=== PATIENT | male | born 1935 | race Caucasian/White ===

== ENCOUNTER 2020-09-26 06:31 | Outpatient (CLI) | payer MEDICARE ==
[2020-09-26 12:43] LABS: #Eosinphils 0.1 10x3/uL (0.0-0.5); #Monocytes 0.5 10x3/uL (0.0-1.1); #Neutrophils 3.4 10x3/uL (1.5-8.4); %Basophils 0.4 % (0.0-2.0); %Monocytes 8.4 % (0.0-10.0); Hemoglobin 13.7 g/dL (14.0-18.0); Mean Corpuscular HGB CONC 32.6 G/DL (32.0-36.0); Mean Corpuscular Hemoglobin 29.8 PG (27.0-33.0); Mean Corpuscular Volume 91.5 fl (80.0-100.0); Mean Platelet Volume 12.3 fl (7.4-10.4); Platelet Count 135 10x3/uL (130-400); RBC Distribution Width 13.6 % (11.5-14.5); Red Blood Cell (RBC) Count 4.59 10x6/uL (4.40-5.80); White Blood Cell (WBC) Count 5.5 10x3/uL (4.5-11.0)
[2020-09-26 13:07] LABS: Anion Gap 19 mmol/L (10-20); BUN (Urea Nitrogen) 25 mg/dL (8.4-25.7); Calc. Creatinine Clearance 0 mL/min (70-130); Calcium 8.8 mg/dL (7.8-10.44); Carbon Dioxide 22 mmol/L (23-31); Chloride 104 mmol/L (98-107); Estimated GFR-MDRD 62; Glucose 91 mg/dL (83-110); Potassium 4.2 mmol/L (3.5-5.1); Sodium 141 mmol/L (136-145)
[2020-09-27 15:01] LABS: SARS-CoV-2 MS2 Positive; SARS-CoV-2 N Gene Negative; SARS-CoV-2 S Gene Negative; SARS-CoV-2 by NAA Not Detected (NotDetected); SARS-CoV-2 orf1ab Negative
--- NOTE | 2020-09-29 20:53 | EKG ---
Test Reason : Blood Pressure : / mmHG Vent. Rate : 062 BPM Atrial Rate : 062 BPM P-R Int : 212 ms QRS Dur : 166 ms QT Int : 516 ms P-R-T Axes : 096 -71 095 degrees QTc Int : 523 ms AV dual-paced rhythm with prolonged AV conduction with occasional ventricular-paced complexes Abnormal ECG No previous ECGs available Confirmed by Petr SWANSON ([id number]) on 09/29/2020 8:52:55 PM Referred By: KRISTEN Confirmed By:Petr SWANSON
== END 2020-09-26 06:32 | disposition home or self-care (01) ==
LOC: LABBT 06:31
PROVIDERS: ATTEND Orthopaedic Surgery Hand Surgery
DX: Z01.812 Encounter for preprocedural laboratory examination (principal); Z20.828 Contact with and (suspected) exposure to other viral communicable diseases; G56.01 Carpal tunnel syndrome, right upper limb
CPT/HCPCS: 80048; 85025; 93005; U0003; 87635; 93010

== ENCOUNTER 2020-10-01 05:32 | Day surgery (SDC) | payer MEDICARE ==
[2020-09-30 12:52] VITALS: BMI 28.6
[2020-10-01] MEDS ORDERED: Betamet Acet/Betamet Na Ph 30 MG/5 ML VIAL ONE (06:21)
[2020-10-01] MEDS ORDERED: Bupivacaine PF 0.5% 30 ML VIAL ONE (06:21)
[2020-10-01] MEDS ORDERED: Bacitracin Zinc Ointment 30 gm TUBE ONE (06:21)
[2020-10-01] MEDS ORDERED: Fentanyl 100 MCG/2 ML VIAL ONE (06:53)
[2020-10-01] MEDS ORDERED: Propofol 500 MG/50 ML VIAL ONE (06:57)
[2020-10-01] MEDS ORDERED: Lidocaine 1% (PF) 30 ML VIAL ONE (07:09)
[2020-10-01] MEDS ORDERED: ePHEDrine 50 MG/ML VIAL ONE (10:32)
--- NOTE | 2020-10-01 11:01 | OP ---
DATE OF PROCEDURE: 10/01/2020 PREOPERATIVE DIAGNOSIS: Right carpal tunnel syndrome. POSTOPERATIVE DIAGNOSIS: Right carpal tunnel syndrome. FINDINGS: Very tight transverse carpal ligament with flattening and stippling over a 15 mm area of the median nerve within the carpal canal. PROCEDURE PERFORMED: Right carpal tunnel release. BLOOD LOSS: 5 mL or less. TOURNIQUET TIME: 16 minutes. No tenosynovitis. ANESTHESIA: IV conscious sedation augmented with 15 mL of Marcaine prior to incision and 15 more given, a total of 30, with the last 15 given after the incision was closed. DESCRIPTION OF PROCEDURE: After successful anesthesia, the limb prepped and draped. We then outlined incision, which was 2.5 cm long, beginning at the wrist volar flexion crease, going distally. We gave the subcutaneous injection of 15 mL of Marcaine and then waited for 5 minutes, exsanguinated the limb and inflated tourniquet to 250 mmHg pressure. We then entered the incision, carried it through skin and subcutaneous tissue and found a very thick transverse carpal ligament at distal half and thin but tight in the proximal one-half. At the junction of these two halves was where we saw the most compression. We did the release under direct visualization with a [place] blade, obtained hemostasis after releasing the tourniquet, and closed the wound with interrupted 4-0 nylon. He left the operating room without complication. Job ID: [id number]
== END 2020-10-01 09:00 | disposition home or self-care (01) ==
LOC: SDC 05:32
PROVIDERS: ATTEND Orthopaedic Surgery Hand Surgery
PROC: 01N50ZZ Release Median Nerve, Open Approach (ICD-10-PCS; principal; 2020-10-01)
DX: G56.01 Carpal tunnel syndrome, right upper limb (principal); I11.0 Hypertensive heart disease with heart failure; I50.9 Heart failure, unspecified; E78.5 Hyperlipidemia, unspecified; I87.2 Venous insufficiency (chronic) (peripheral); I35.1 Nonrheumatic aortic (valve) insufficiency; Z87.891 Personal history of nicotine dependence; Z79.899 Other long term (current) drug therapy; Z95.0 Presence of cardiac pacemaker; Z98.1 Arthrodesis status
CPT/HCPCS: J0690; J0702; J2001; J2704; J3010; J3490; S0020

== ENCOUNTER 2021-12-17 11:29 | Outpatient (CLI) | payer MEDICARE | END 2021-12-17 11:30 | disposition home or self-care (01) | LOC: BICRAD 11:29 | PROVIDERS: ATTEND Internal Medicine Cardiovascular Disease | DX: I50.22 Chronic systolic (congestive) heart failure (principal); I51.7 Cardiomegaly; R09.89 Other specified symptoms and signs involving the circulatory and respiratory systems | CPT/HCPCS: 71046 ==

== ENCOUNTER 2022-06-18 11:59 | Outpatient (CLI) | payer MEDICARE ==
[2022-06-18 13:21] LABS: Hemoglobin 13.7 g/dL (13.5-17.5); Mean Corpuscular HGB CONC 32.5 g/dL (32.0-36.0); Mean Corpuscular Hemoglobin 30.5 pg (27.0-33.0); Mean Corpuscular Volume 93.8 fl (81.2-95.1); Mean Platelet Volume 12.9 fl (7.4-10.4); Platelet Count 126 10x3/uL (150-450); RBC Distribution Width 14.7 % (11.5-14.5); Red Blood Cell (RBC) Count 4.49 10x6/uL (4.32-5.72); White Blood Cell (WBC) Count 4.5 10x3/uL (3.5-10.5)
[2022-06-18 13:38] LABS: Anion Gap 16 mmol/L (10-20); BUN (Urea Nitrogen) 25 mg/dL (8.4-25.7); Calc. Creatinine Clearance 0 mL/min (70-130); Carbon Dioxide 24 mmol/L (23-31); Chloride 107 mmol/L (98-107); Estimated GFR 48; Glucose 120 mg/dL (83-110); Potassium 4.4 mmol/L (3.5-5.1); Sodium 143 mmol/L (136-145)
[2022-06-18 13:47] LABS: PTT 29.6 sec (22.0-33.0); Prothrombin Time 11.3 sec (9.5-12.1)
== END 2022-06-18 12:00 | disposition home or self-care (01) ==
LOC: LABBT 11:59
PROVIDERS: ATTEND Internal Medicine Cardiovascular Disease
DX: Z01.812 Encounter for preprocedural laboratory examination (principal); Z20.822 Contact with and (suspected) exposure to COVID-19
CPT/HCPCS: 80048; 85027; 85610; 85730; 87811

== ENCOUNTER 2022-06-23 06:15 | Day surgery (SDC) | payer MEDICARE ==
[2022-06-22 08:59] VITALS: BMI 27.6
[2022-06-23] MEDS ORDERED: Ketamine 50 MG/ML (10ML VIAL) ONE (07:17)
[2022-06-23] MEDS ORDERED: Lidocaine 1% PF 5 ML VIAL ONE (07:26)
[2022-06-23] MEDS ORDERED: PROPOFOL 200 MG/20 ML VIAL ONE (07:26)
== END 2022-06-23 08:45 | disposition home or self-care (01) ==
LOC: SDC 06:15
PROVIDERS: ATTEND Internal Medicine Cardiovascular Disease
PROC: 5A2204Z Restoration of Cardiac Rhythm, Single (ICD-10-PCS; principal; 2022-06-23)
DX: I48.4 Atypical atrial flutter (principal); I48.0 Paroxysmal atrial fibrillation; I44.2 Atrioventricular block, complete; I11.0 Hypertensive heart disease with heart failure; I50.22 Chronic systolic (congestive) heart failure; Z87.891 Personal history of nicotine dependence; Z79.01 Long term (current) use of anticoagulants; Z79.899 Other long term (current) drug therapy; Z95.810 Presence of automatic (implantable) cardiac defibrillator
CPT/HCPCS: 92960; 93005; 93010; J2704

== ENCOUNTER 2022-12-03 10:55 | Inpatient (IN) | payer MEDICARE ==
[2022-12-03] MEDS ORDERED: Furosemide 40 MG/4 ML VIAL ONE (12:05)
[2022-12-03 12:32] LABS: #Lymphocytes 0.7 thou/uL (1.20-3.40); #Monocytes 0.3 thou/uL (0.11-0.59); #Neutrophils 3.8 thou/uL (1.40-6.50); %Basophils 0.4 % (0.0-1.0); %Eosinophils 0.5 % (0.0-10.0); %Lymphocytes 14.8 % (21.0-51.0); %Monocytes 6.6 % (0.0-10.0); %Neutrophils 77.7 % (42.0-75.0); Hemoglobin 14.7 g/dL (14.0-18.0); Mean Corpuscular HGB CONC 32.7 g/dL (32.0-36.0); Mean Corpuscular Hemoglobin 31.5 pg (27.0-31.0); Mean Corpuscular Volume 96.4 fl (78.0-98.0); Mean Platelet Volume 9.9 fL (7.4-10.4); Platelet Count 138 10x3/uL (130-400); RBC Distribution Width 14.9 % (11.5-14.5); Red Blood Cell (RBC) Count 4.67 mill/uL (4.70-6.10); White Blood Cell (WBC) Count 4.9 10x3/uL (4.8-10.8)
[2022-12-03 12:49] LABS: ALT (SGPT) 18 U/L (8-55); AST (SGOT) 25 U/L (5-34); Albumin 4.1 g/dL (3.4-4.8); Alkaline Phosphatase 92 U/L (40-110); Anion Gap 15 mmol/L (10-20); BUN (Urea Nitrogen) 29 mg/dL (8.4-25.7); Bilirubin, Total 1.9 mg/dL (0.2-1.2); Calc. Creatinine Clearance 0 mL/min (70-130); Calcium 9.1 mg/dL (7.8-10.44); Carbon Dioxide 27 mmol/L (23-31); Chloride 102 mmol/L (98-107); Estimated GFR 46; Globulin 2.8 g/dL (2.4-3.5); Glucose 86 mg/dL (83-110); Potassium 3.8 mmol/L (3.5-5.1); Protein, Total 6.9 g/dL (5.8-8.1); Sodium 140 mmol/L (136-145)
[2022-12-03 13:18] LABS: CKMB 7.8 ng/mL (0-6.6)
[2022-12-03] MEDS ORDERED: Aspirin Chewable 81 MG TAB ONE (13:26)
[2022-12-03 14:31] LABS: SARS-CoV-2 NAA Rapid Test Not Detected (NotDetected)
[2022-12-03] MEDS ORDERED: Nitroglycerin 0.4 MG TAB (25 Tab Bottle) SL PRN (14:58)
[2022-12-03 15:44] VITALS: BMI 27.7
[2022-12-03] MEDS ORDERED: Furosemide 40 MG/4 ML VIAL SLOW IVP SCH (16:00)
[2022-12-03 17:03] LABS: Critical Call Chem Troponin I RESULT DECREASING; Troponin I 0.297 ng/mL (< 0.028)
[2022-12-03] MEDS: Vancomycin 1.5 GRAM/300 ML BAG 1.5 GM in Premix Bag 1 BAG IVPB SCH (17:29)
[2022-12-03 20:09] LABS: Critical Call Chem Troponin I RESULT DECREASING; Troponin I 0.265 ng/mL (< 0.028)
[2022-12-03] MEDS ORDERED: VANCOMYCIN 1.25 GM/250 ML BAG IVPB SCH (21:00)
[2022-12-03] MEDS: Apixaban 2.5 MG TAB PO SCH (21:47)
[2022-12-04 04:44] LABS: Anion Gap 16 mmol/L (10-20); BUN (Urea Nitrogen) 26 mg/dL (8.4-25.7); Calc. Creatinine Clearance 54 mL/min (70-130); Carbon Dioxide 28 mmol/L (23-31); Chloride 104 mmol/L (98-107); Estimated GFR 51; Glucose 85 mg/dL (83-110); Potassium 3.5 mmol/L (3.5-5.1); Sodium 144 mmol/L (136-145)
[2022-12-04 05:16] LABS: Troponin I 0.276 ng/mL (< 0.028)
[2022-12-04] MEDS: Furosemide 40 MG/4 ML VIAL SLOW IVP SCH ×2 (05:48→13:37)
[2022-12-04] MEDS: Levothyroxine Sodium 50 MCG TAB PO SCH (05:48)
[2022-12-04] MEDS: Empagliflozin 10 MG TAB PO SCH (08:58)
[2022-12-04] MEDS: Apixaban 2.5 MG TAB PO SCH ×2 (08:58→21:32)
[2022-12-04] MEDS ORDERED: Tamsulosin HCl 0.4 MG CAP PO SCH (09:00)
[2022-12-04] MEDS ORDERED: Metolazone 5 MG TAB PO SCH (11:30)
[2022-12-04] MEDS ORDERED: Potassium Chloride 20 MEQ TAB PO SCH (11:30)
[2022-12-04] MEDS: Vancomycin 1.5 GRAM/300 ML BAG 1.5 GM in Premix Bag 1 BAG IVPB SCH (16:37)
[2022-12-05 05:18] LABS: Anion Gap 14 mmol/L (10-20); BUN (Urea Nitrogen) 28 mg/dL (8.4-25.7); Calc. Creatinine Clearance 57 mL/min (70-130); Calcium 9.2 mg/dL (7.8-10.44); Carbon Dioxide 29 mmol/L (23-31); Chloride 99 mmol/L (98-107); Estimated GFR 55; Glucose 96 mg/dL (83-110); Potassium 3.2 mmol/L (3.5-5.1); Sodium 139 mmol/L (136-145)
[2022-12-05 05:24] LABS: Troponin I 0.283 ng/mL (< 0.028)
[2022-12-05] MEDS: Levothyroxine Sodium 50 MCG TAB PO SCH (06:33)
[2022-12-05] MEDS: Furosemide 40 MG/4 ML VIAL SLOW IVP SCH ×2 (06:33→13:41)
[2022-12-05 07:14] LABS: Magnesium 2.1 mg/dL (1.6-2.6)
[2022-12-05] MEDS ORDERED: Potassium Chloride 20 MEQ TAB PO SCH (08:00)
[2022-12-05] MEDS: Tamsulosin HCl 0.4 MG CAP PO SCH (09:22)
[2022-12-05] MEDS: Apixaban 2.5 MG TAB PO SCH ×2 (09:22→21:41)
[2022-12-05] MEDS: Empagliflozin 10 MG TAB PO SCH (09:23)
[2022-12-05] MEDS: Bisacodyl 5 MG TAB PO PRN (16:48)
[2022-12-05 17:18] LABS: Vancomycin, Trough 14.1 ug/mL
[2022-12-05] MEDS: Vancomycin 1.5 GRAM/300 ML BAG 1.5 GM in Premix Bag 1 BAG IVPB SCH (17:45)
[2022-12-06 04:52] LABS: Anion Gap 16 mmol/L (10-20); BUN (Urea Nitrogen) 32 mg/dL (8.4-25.7); Calc. Creatinine Clearance 55 mL/min (70-130); Calcium 9.3 mg/dL (7.8-10.44); Carbon Dioxide 30 mmol/L (23-31); Chloride 95 mmol/L (98-107); Estimated GFR 53; Glucose 83 mg/dL (83-110); Magnesium 2.1 mg/dL (1.6-2.6); Potassium 3.2 mmol/L (3.5-5.1); Sodium 138 mmol/L (136-145)
[2022-12-06] MEDS: Levothyroxine Sodium 50 MCG TAB PO SCH (05:59)
[2022-12-06] MEDS: Furosemide 40 MG/4 ML VIAL SLOW IVP SCH ×2 (05:59→16:47)
[2022-12-06] MEDS ORDERED: Empagliflozin 10 MG TAB PO SCH (09:00)
[2022-12-06] MEDS ORDERED: Potassium Chloride 20 MEQ TAB PO SCH (11:15)
[2022-12-06] MEDS: Apixaban 2.5 MG TAB PO SCH ×2 (11:33→22:28)
[2022-12-06] MEDS: Empagliflozin 10 MG TAB PO SCH (11:33)
[2022-12-06] MEDS: Tamsulosin HCl 0.4 MG CAP PO SCH (11:33)
[2022-12-06] MEDS: Folic Acid 1 MG TAB PO SCH (11:33)
[2022-12-06] MEDS: Potassium Chloride 20 MEQ TAB PO SCH (16:47)
[2022-12-06] MEDS: Vancomycin 1.5 GRAM/300 ML BAG 1.5 GM in Premix Bag 1 BAG IVPB SCH (16:47)
[2022-12-06] MEDS: Cyanocobalamin (Vitamin B-12) 1,000 MCG TAB PO SCH (22:28)
[2022-12-07 05:01] LABS: Anion Gap 15 mmol/L (10-20); BUN (Urea Nitrogen) 36 mg/dL (8.4-25.7); Calc. Creatinine Clearance 46 mL/min (70-130); Calcium 9.4 mg/dL (7.8-10.44); Carbon Dioxide 34 mmol/L (23-31); Chloride 92 mmol/L (98-107); Estimated GFR 47; Glucose 86 mg/dL (83-110); Magnesium 2.1 mg/dL (1.6-2.6); Potassium 2.7 mmol/L (3.5-5.1); Sodium 138 mmol/L (136-145)
[2022-12-07] MEDS: Levothyroxine Sodium 50 MCG TAB PO SCH (05:46)
[2022-12-07] MEDS: Furosemide 40 MG/4 ML VIAL SLOW IVP SCH (05:46)
[2022-12-07] MEDS ORDERED: Potassium Chloride 20 MEQ TAB PO SCH ×2 (08:15→17:45)
[2022-12-07] MEDS ORDERED: Polyethylene Glycol 3350 17 GM Packet PO SCH (08:30)
[2022-12-07] MEDS ORDERED: Docusate 100 MG CAP PO SCH (08:30)
[2022-12-07] MEDS: Potassium Chloride 20 MEQ TAB PO SCH ×2 (10:40→17:29)
[2022-12-07] MEDS: Apixaban 2.5 MG TAB PO SCH ×2 (10:40→21:27)
[2022-12-07] MEDS: Tamsulosin HCl 0.4 MG CAP PO SCH (10:40)
[2022-12-07] MEDS: Empagliflozin 10 MG TAB PO SCH (10:41)
[2022-12-07] MEDS: Folic Acid 1 MG TAB PO SCH (10:41)
[2022-12-07] MEDS: Potassium Chloride 20 MEQ in Premix Bag 1 BAG IVPB SCH (14:40)
[2022-12-07 16:15] LABS: Vancomycin, Trough 20.9 ug/mL
[2022-12-07 16:32] LABS: Anion Gap 19 mmol/L (10-20); BUN (Urea Nitrogen) 39 mg/dL (8.4-25.7); Calc. Creatinine Clearance 45 mL/min (70-130); Calcium 10.1 mg/dL (7.8-10.44); Carbon Dioxide 30 mmol/L (23-31); Chloride 91 mmol/L (98-107); Estimated GFR 45; Glucose 89 mg/dL (83-110); Potassium 3.3 mmol/L (3.5-5.1); Sodium 137 mmol/L (136-145)
[2022-12-07] MEDS: Cyanocobalamin (Vitamin B-12) 1,000 MCG TAB PO SCH (21:28)
[2022-12-08] MEDS: Acetaminophen 325 MG TAB PO PRN ×2 (01:42→20:28)
[2022-12-08 05:09] LABS: Hemoglobin 15.7 g/dL (14.0-18.0); Mean Corpuscular Hemoglobin 31.2 pg (27.0-31.0); Mean Corpuscular Volume 97.4 fl (78.0-98.0); Mean Platelet Volume 9.6 fL (7.4-10.4); Platelet Count 163 10x3/uL (130-400); RBC Distribution Width 14.6 % (11.5-14.5); Red Blood Cell (RBC) Count 5.03 mill/uL (4.70-6.10); White Blood Cell (WBC) Count 4.8 10x3/uL (4.8-10.8)
[2022-12-08 05:11] LABS: Anion Gap 15 mmol/L (10-20); BUN (Urea Nitrogen) 30 mg/dL (8.4-25.7); Calc. Creatinine Clearance 55 mL/min (70-130); Calcium 9.3 mg/dL (7.8-10.44); Carbon Dioxide 30 mmol/L (23-31); Chloride 96 mmol/L (98-107); Estimated GFR 57; Glucose 90 mg/dL (83-110); Magnesium 2.2 mg/dL (1.6-2.6); Potassium 3.4 mmol/L (3.5-5.1); Sodium 138 mmol/L (136-145)
[2022-12-08] MEDS: Levothyroxine Sodium 50 MCG TAB PO SCH (05:24)
[2022-12-08] MEDS: Potassium Chloride 20 MEQ in Premix Bag 1 BAG IVPB SCH (07:20)
[2022-12-08] MEDS: Potassium Chloride 20 MEQ TAB PO SCH ×2 (10:02→17:49)
[2022-12-08] MEDS: Bisacodyl 5 MG TAB PO PRN (10:02)
[2022-12-08] MEDS: Empagliflozin 10 MG TAB PO SCH (10:02)
[2022-12-08] MEDS: Furosemide 40 MG TAB PO SCH (10:03)
[2022-12-08] MEDS: Folic Acid 1 MG TAB PO SCH (10:03)
[2022-12-08] MEDS: Tamsulosin HCl 0.4 MG CAP PO SCH (10:03)
[2022-12-08] MEDS: Apixaban 2.5 MG TAB PO SCH ×2 (10:03→20:28)
[2022-12-08] MEDS ORDERED: Bisacodyl 10 MG SUPP PR PRN (13:49)
[2022-12-08] MEDS ORDERED: Hydrocortisone Acetate 25 MG Suppository PR SCH (15:00)
[2022-12-08] MEDS: Bisacodyl 10 MG SUPP PR SCH ×2 (15:37→16:37)
[2022-12-08 16:58] LABS: Hemoglobin 16.1 g/dL (14.0-18.0)
[2022-12-08] MEDS: Cyanocobalamin (Vitamin B-12) 1,000 MCG TAB PO SCH (20:28)
[2022-12-09 04:45] LABS: Hemoglobin 15.2 g/dL (14.0-18.0); Mean Corpuscular HGB CONC 32.7 g/dL (32.0-36.0); Mean Corpuscular Hemoglobin 31.8 pg (27.0-31.0); Mean Corpuscular Volume 97.1 fl (78.0-98.0); Mean Platelet Volume 9.6 fL (7.4-10.4); Platelet Count 162 10x3/uL (130-400); RBC Distribution Width 14.8 % (11.5-14.5); Red Blood Cell (RBC) Count 4.79 mill/uL (4.70-6.10); White Blood Cell (WBC) Count 7.4 10x3/uL (4.8-10.8)
[2022-12-09] MEDS: Levothyroxine Sodium 50 MCG TAB PO SCH (04:49)
[2022-12-09] MEDS: Empagliflozin 10 MG TAB PO SCH (08:58)
[2022-12-09] MEDS: Potassium Chloride 20 MEQ TAB PO SCH ×2 (08:59→17:18)
[2022-12-09] MEDS: Tamsulosin HCl 0.4 MG CAP PO SCH (08:59)
[2022-12-09] MEDS: Apixaban 2.5 MG TAB PO SCH ×2 (08:59→20:58)
[2022-12-09] MEDS: Furosemide 40 MG TAB PO SCH (09:00)
[2022-12-09] MEDS: Folic Acid 1 MG TAB PO SCH (09:00)
[2022-12-09] MEDS ORDERED: Potassium Chloride 20 MEQ TAB PO SCH (12:00)
[2022-12-09] MEDS ORDERED: Polyethylene Glycol 3350 17 GM Packet PO SCH (16:15)
[2022-12-09] MEDS: Cyanocobalamin (Vitamin B-12) 1,000 MCG TAB PO SCH (20:57)
[2022-12-09] MEDS: Polyethylene Glycol 3350 17 GM Packet PO SCH (20:58)
[2022-12-10 04:53] LABS: #Basophils 0.1 thou/uL (0.0-0.2); #Lymphocytes 1.5 thou/uL (1.20-3.40); #Monocytes 0.5 thou/uL (0.11-0.59); #Neutrophils 4.1 thou/uL (1.40-6.50); %Basophils 0.8 % (0.0-1.0); %Eosinophils 0.4 % (0.0-10.0); %Lymphocytes 24.5 % (21.0-51.0); %Monocytes 8.3 % (0.0-10.0); Hemoglobin 15.4 g/dL (14.0-18.0); Mean Corpuscular Hemoglobin 31.1 pg (27.0-31.0); Mean Corpuscular Volume 97.2 fl (78.0-98.0); Mean Platelet Volume 9.7 fL (7.4-10.4); Platelet Count 155 10x3/uL (130-400); RBC Distribution Width 14.8 % (11.5-14.5); Red Blood Cell (RBC) Count 4.97 mill/uL (4.70-6.10); White Blood Cell (WBC) Count 6.2 10x3/uL (4.8-10.8)
[2022-12-10 05:14] LABS: Anion Gap 17 mmol/L (10-20); BUN (Urea Nitrogen) 30 mg/dL (8.4-25.7); Calc. Creatinine Clearance 51 mL/min (70-130); Calcium 9.4 mg/dL (7.8-10.44); Carbon Dioxide 25 mmol/L (23-31); Chloride 99 mmol/L (98-107); Estimated GFR 53; Glucose 85 mg/dL (83-110); Magnesium 2.2 mg/dL (1.6-2.6); Potassium 3.9 mmol/L (3.5-5.1); Sodium 137 mmol/L (136-145)
[2022-12-10] MEDS: Levothyroxine Sodium 50 MCG TAB PO SCH (05:31)
[2022-12-10] MEDS ORDERED: Furosemide 40 MG TAB PO SCH (09:00)
[2022-12-10] MEDS: Tamsulosin HCl 0.4 MG CAP PO SCH (09:09)
[2022-12-10] MEDS: Empagliflozin 10 MG TAB PO SCH (09:09)
[2022-12-10] MEDS: Apixaban 2.5 MG TAB PO SCH (09:09)
[2022-12-10] MEDS: Folic Acid 1 MG TAB PO SCH (09:10)
[2022-12-10] MEDS: Potassium Chloride 20 MEQ TAB PO SCH (09:10)
[2022-12-10] MEDS: Polyethylene Glycol 3350 17 GM Packet PO SCH (09:37)
[2022-12-10 12:49] VITALS: BP 115/70; TEMP 96.1
== END 2022-12-10 04:30 | disposition home or self-care (01) | DRG 280 ==
LOC: ERS 10:55 → 2NO 15:23
PROVIDERS: ADMIT Hospitalist; ATTEND Internal Medicine
DX: I11.0 Hypertensive heart disease with heart failure (principal); I21.A1 Myocardial infarction type 2; I50.43 Acute on chronic combined systolic (congestive) and diastolic (congestive) heart failure; L03.116 Cellulitis of left lower limb; L03.115 Cellulitis of right lower limb; I48.20 Chronic atrial fibrillation, unspecified; E78.5 Hyperlipidemia, unspecified; Z66 Do not resuscitate; E03.9 Hypothyroidism, unspecified; E87.6 Hypokalemia; K59.00 Constipation, unspecified; Z20.822 Contact with and (suspected) exposure to COVID-19; Z98.890 Other specified postprocedural states; Z87.891 Personal history of nicotine dependence; Z95.810 Presence of automatic (implantable) cardiac defibrillator; Z79.01 Long term (current) use of anticoagulants; Z79.899 Other long term (current) drug therapy; Z88.8 Allergy status to other drugs, medicaments and biological substances
CPT/HCPCS: 36415; 71045; 71046; 74018; 80048; 80053; 80202; 82553; 83735; 83880; 84443; 84484; 85025; 85027; 93005; 96374; J1940; J1956; J3370; J3480; U0002

== ENCOUNTER 2023-01-06 12:20 | Inpatient (IN) | payer MEDICARE ==
[2023-01-06 13:06] LABS: #Lymphocytes 1.1 thou/uL (1.20-3.40); #Monocytes 0.3 thou/uL (0.11-0.59); #Neutrophils 3.1 thou/uL (1.40-6.50); %Basophils 0.2 % (0.0-1.0); %Eosinophils 0.4 % (0.0-10.0); %Lymphocytes 24.6 % (21.0-51.0); %Monocytes 6.4 % (0.0-10.0); %Neutrophils 68.5 % (42.0-75.0); Hemoglobin 14.9 g/dL (14.0-18.0); Mean Corpuscular HGB CONC 33.3 g/dL (32.0-36.0); Mean Corpuscular Hemoglobin 32.3 pg (27.0-31.0); Mean Corpuscular Volume 97.3 fl (78.0-98.0); Mean Platelet Volume 10.4 fL (7.4-10.4); Platelet Count 130 10x3/uL (130-400); Red Blood Cell (RBC) Count 4.62 mill/uL (4.70-6.10); White Blood Cell (WBC) Count 4.5 10x3/uL (4.8-10.8)
[2023-01-06 13:20] LABS: ALT (SGPT) 30 U/L (8-55); AST (SGOT) 32 U/L (5-34); Alkaline Phosphatase 101 U/L (40-110); Anion Gap 18 mmol/L (10-20); BUN (Urea Nitrogen) 31 mg/dL (8.4-25.7); Calc. Creatinine Clearance 0 mL/min (70-130); Calcium 9.2 mg/dL (7.8-10.44); Carbon Dioxide 21 mmol/L (23-31); Chloride 103 mmol/L (98-107); Estimated GFR 47; Globulin 2.5 g/dL (2.4-3.5); Glucose 91 mg/dL (83-110); Potassium 4.2 mmol/L (3.5-5.1); Protein, Total 6.5 g/dL (5.8-8.1); Sodium 138 mmol/L (136-145)
[2023-01-06 13:47] LABS: CKMB 8.5 ng/mL (0-6.6)
[2023-01-06] MEDS ORDERED: Furosemide 40 MG/4 ML VIAL ONE (14:01)
[2023-01-06] MEDS ORDERED: Acetaminophen 325 MG TAB PO PRN (14:27)
[2023-01-06] MEDS ORDERED: Ondansetron PF 4 MG/2 ML Vial IVP PRN (14:27)
[2023-01-06] MEDS ORDERED: Ondansetron ODT 4 MG TAB PO PRN (14:27)
[2023-01-06 16:33] LABS: Troponin I 0.205 ng/mL (< 0.028)
[2023-01-06 20:57] LABS: Troponin I 0.202 ng/mL (< 0.028)
[2023-01-06] MEDS ORDERED: Apixaban 2.5 MG TAB PO SCH (22:00)
[2023-01-07 04:27] LABS: #Lymphocytes 0.7 thou/uL (1.20-3.40); #Monocytes 0.1 thou/uL (0.11-0.59); %Basophils 0.6 % (0.0-1.0); %Lymphocytes 16.8 % (21.0-51.0); %Monocytes 3.7 % (0.0-10.0); %Neutrophils 78.8 % (42.0-75.0); Hemoglobin 14.3 g/dL (14.0-18.0); Mean Corpuscular HGB CONC 33.6 g/dL (32.0-36.0); Mean Corpuscular Hemoglobin 33.1 pg (27.0-31.0); Mean Corpuscular Volume 98.5 fl (78.0-98.0); Mean Platelet Volume 10.9 fL (7.4-10.4); Platelet Count 119 10x3/uL (130-400); RBC Distribution Width 15.1 % (11.5-14.5); Red Blood Cell (RBC) Count 4.34 mill/uL (4.70-6.10); White Blood Cell (WBC) Count 3.9 10x3/uL (4.8-10.8)
[2023-01-07 04:48] LABS: ALT (SGPT) 29 U/L (8-55); AST (SGOT) 27 U/L (5-34); Albumin 3.5 g/dL (3.4-4.8); Alkaline Phosphatase 91 U/L (40-110); Anion Gap 17 mmol/L (10-20); BUN (Urea Nitrogen) 36 mg/dL (8.4-25.7); Bilirubin, Total 1.7 mg/dL (0.2-1.2); Calc. Creatinine Clearance 0 mL/min (70-130); Calcium 9.2 mg/dL (7.8-10.44); Carbon Dioxide 25 mmol/L (23-31); Chloride 102 mmol/L (98-107); Estimated GFR 47; Globulin 2.6 g/dL (2.4-3.5); Glucose 122 mg/dL (83-110); Potassium 3.7 mmol/L (3.5-5.1); Protein, Total 6.1 g/dL (5.8-8.1); Sodium 140 mmol/L (136-145)
[2023-01-07] MEDS ORDERED: Aspirin Chewable 81 MG TAB PO SCH (09:00)
[2023-01-07] MEDS: Apixaban 2.5 MG TAB PO SCH ×2 (09:35→20:59)
[2023-01-07] MEDS: Potassium Chloride 20 MEQ TAB PO SCH ×2 (10:41→20:59)
[2023-01-07] MEDS: Cyanocobalamin (Vitamin B-12) 1,000 MCG TAB PO SCH (10:41)
[2023-01-07] MEDS ORDERED: Empagliflozin 10 MG TAB PO SCH (10:45)
[2023-01-07] MEDS ORDERED: Levothyroxine Sodium 75 MCG TAB PO SCH (10:45)
[2023-01-08 05:16] LABS: #Lymphocytes 1.3 thou/uL (1.20-3.40); #Monocytes 0.6 thou/uL (0.11-0.59); #Neutrophils 4.6 thou/uL (1.40-6.50); %Basophils 0.4 % (0.0-1.0); %Eosinophils 0.1 % (0.0-10.0); %Lymphocytes 19.6 % (21.0-51.0); %Monocytes 9.1 % (0.0-10.0); %Neutrophils 70.8 % (42.0-75.0); Hemoglobin 15.9 g/dL (14.0-18.0); Mean Corpuscular HGB CONC 31.9 g/dL (32.0-36.0); Mean Corpuscular Hemoglobin 31.6 pg (27.0-31.0); Mean Corpuscular Volume 99.1 fl (78.0-98.0); Mean Platelet Volume 10.6 fL (7.4-10.4); Platelet Count 144 10x3/uL (130-400); RBC Distribution Width 15.2 % (11.5-14.5); Red Blood Cell (RBC) Count 5.05 mill/uL (4.70-6.10); White Blood Cell (WBC) Count 6.6 10x3/uL (4.8-10.8)
[2023-01-08 05:47] LABS: ALT (SGPT) 45 U/L (8-55); AST (SGOT) 44 U/L (5-34); Albumin 3.9 g/dL (3.4-4.8); Alkaline Phosphatase 102 U/L (40-110); Anion Gap 19 mmol/L (10-20); BUN (Urea Nitrogen) 41 mg/dL (8.4-25.7); Bilirubin, Total 1.7 mg/dL (0.2-1.2); Calc. Creatinine Clearance 48 mL/min (70-130); Calcium 9.6 mg/dL (7.8-10.44); Carbon Dioxide 19 mmol/L (23-31); Chloride 103 mmol/L (98-107); Estimated GFR 50; Glucose 96 mg/dL (83-110); Potassium 4.4 mmol/L (3.5-5.1); Protein, Total 6.9 g/dL (5.8-8.1); Sodium 137 mmol/L (136-145)
[2023-01-08] MEDS ORDERED: Furosemide 40 MG/4 ML VIAL SLOW IVP SCH ×3 (06:00→11:00)
[2023-01-08] MEDS: Levothyroxine Sodium 75 MCG TAB PO SCH (06:09)
[2023-01-08] MEDS: Tamsulosin HCl 0.4 MG CAP PO SCH (08:31)
[2023-01-08] MEDS: Apixaban 2.5 MG TAB PO SCH ×2 (08:31→20:43)
[2023-01-08] MEDS: Empagliflozin 10 MG TAB PO SCH (08:31)
[2023-01-08] MEDS: Potassium Chloride 20 MEQ TAB PO SCH ×2 (08:31→20:43)
[2023-01-08] MEDS: DOBUTamine 500 mg/250 ml 250 ML IVPB SCH (14:51)
[2023-01-08] MEDS: Furosemide 100 MG/10 ML VIAL SLOW IVP SCH (16:53)
[2023-01-08] MEDS: Cyanocobalamin (Vitamin B-12) 1,000 MCG TAB PO SCH (20:43)
[2023-01-08] MEDS ORDERED: Amiodarone 200 MG TAB PO SCH (21:00)
[2023-01-09 04:26] LABS: #Monocytes 0.4 thou/uL (0.11-0.59); #Neutrophils 2.8 thou/uL (1.40-6.50); %Basophils 0.3 % (0.0-1.0); %Lymphocytes 23.7 % (21.0-51.0); %Monocytes 10.4 % (0.0-10.0); %Neutrophils 64.6 % (42.0-75.0); Hemoglobin 14.1 g/dL (14.0-18.0); Mean Corpuscular HGB CONC 32.5 g/dL (32.0-36.0); Mean Corpuscular Hemoglobin 32.5 pg (27.0-31.0); Mean Corpuscular Volume 99.9 fl (78.0-98.0); Mean Platelet Volume 10.6 fL (7.4-10.4); Platelet Count 120 10x3/uL (130-400); RBC Distribution Width 15.2 % (11.5-14.5); Red Blood Cell (RBC) Count 4.36 mill/uL (4.70-6.10); White Blood Cell (WBC) Count 4.3 10x3/uL (4.8-10.8)
[2023-01-09 04:49] LABS: ALT (SGPT) 143 U/L (8-55); AST (SGOT) 132 U/L (5-34); Albumin 3.2 g/dL (3.4-4.8); Alkaline Phosphatase 84 U/L (40-110); Anion Gap 12 mmol/L (10-20); BUN (Urea Nitrogen) 36 mg/dL (8.4-25.7); Bilirubin, Total 1.5 mg/dL (0.2-1.2); Calc. Creatinine Clearance 55 mL/min (70-130); Calcium 8.9 mg/dL (7.8-10.44); Carbon Dioxide 29 mmol/L (23-31); Chloride 102 mmol/L (98-107); Estimated GFR 59; Globulin 2.6 g/dL (2.4-3.5); Glucose 79 mg/dL (83-110); Potassium 3.3 mmol/L (3.5-5.1); Protein, Total 5.8 g/dL (5.8-8.1); Sodium 140 mmol/L (136-145)
[2023-01-09] MEDS: Furosemide 100 MG/10 ML VIAL SLOW IVP SCH ×2 (06:32→16:28)
[2023-01-09] MEDS: Levothyroxine Sodium 75 MCG TAB PO SCH (06:32)
[2023-01-09] MEDS ORDERED: FLU VACC QS2022-23(65YR UP)/PF 240 MCG/0.7 ML SYRINGE IM ONE (09:00)
[2023-01-09] MEDS: Apixaban 5 MG TAB PO SCH ×2 (09:26→22:57)
[2023-01-09] MEDS: Potassium Chloride 20 MEQ TAB PO SCH ×2 (09:26→22:57)
[2023-01-09] MEDS: Empagliflozin 10 MG TAB PO SCH (09:27)
[2023-01-09] MEDS: Spironolactone 25 MG TAB PO SCH (09:27)
[2023-01-09] MEDS: Tamsulosin HCl 0.4 MG CAP PO SCH (09:27)
[2023-01-09] MEDS: Cyanocobalamin (Vitamin B-12) 1,000 MCG TAB PO SCH (22:57)
[2023-01-10 05:35] LABS: #Lymphocytes 0.9 thou/uL (1.20-3.40); #Monocytes 0.4 thou/uL (0.11-0.59); #Neutrophils 3.4 thou/uL (1.40-6.50); %Basophils 0.3 % (0.0-1.0); %Eosinophils 0.5 % (0.0-10.0); %Lymphocytes 18.6 % (21.0-51.0); %Monocytes 8.9 % (0.0-10.0); %Neutrophils 71.7 % (42.0-75.0); Hemoglobin 14.9 g/dL (14.0-18.0); Mean Corpuscular HGB CONC 32.8 g/dL (32.0-36.0); Mean Corpuscular Hemoglobin 32.6 pg (27.0-31.0); Mean Corpuscular Volume 99.1 fl (78.0-98.0); Platelet Count 126 10x3/uL (130-400); Red Blood Cell (RBC) Count 4.56 mill/uL (4.70-6.10); White Blood Cell (WBC) Count 4.7 10x3/uL (4.8-10.8)
[2023-01-10 05:41] LABS: ALT (SGPT) 143 U/L (8-55); AST (SGOT) 104 U/L (5-34); Albumin 3.5 g/dL (3.4-4.8); Alkaline Phosphatase 91 U/L (40-110); Anion Gap 15 mmol/L (10-20); BUN (Urea Nitrogen) 32 mg/dL (8.4-25.7); Bilirubin, Total 1.7 mg/dL (0.2-1.2); Calc. Creatinine Clearance 59 mL/min (70-130); Carbon Dioxide 26 mmol/L (23-31); Chloride 101 mmol/L (98-107); Estimated GFR 64; Globulin 2.8 g/dL (2.4-3.5); Glucose 70 mg/dL (83-110); Potassium 3.4 mmol/L (3.5-5.1); Protein, Total 6.3 g/dL (5.8-8.1); Sodium 139 mmol/L (136-145)
[2023-01-10] MEDS: DOBUTamine 500 mg/250 ml 250 ML IVPB SCH (06:06)
[2023-01-10] MEDS: Furosemide 100 MG/10 ML VIAL SLOW IVP SCH ×2 (06:06→14:28)
[2023-01-10] MEDS: Levothyroxine Sodium 75 MCG TAB PO SCH (06:06)
[2023-01-10] MEDS: Tamsulosin HCl 0.4 MG CAP PO SCH (09:30)
[2023-01-10] MEDS: Spironolactone 25 MG TAB PO SCH (09:30)
[2023-01-10] MEDS: Apixaban 5 MG TAB PO SCH ×2 (09:30→21:39)
[2023-01-10] MEDS: Potassium Chloride 20 MEQ TAB PO SCH ×2 (09:31→21:39)
[2023-01-10] MEDS: Empagliflozin 10 MG TAB PO SCH (09:31)
[2023-01-10] MEDS: Cyanocobalamin (Vitamin B-12) 1,000 MCG TAB PO SCH (21:38)
[2023-01-11 04:35] LABS: #Lymphocytes 1.2 thou/uL (1.20-3.40); #Monocytes 0.3 thou/uL (0.11-0.59); #Neutrophils 3.6 thou/uL (1.40-6.50); %Basophils 0.2 % (0.0-1.0); %Eosinophils 0.5 % (0.0-10.0); %Lymphocytes 22.4 % (21.0-51.0); %Monocytes 6.6 % (0.0-10.0); %Neutrophils 70.2 % (42.0-75.0); Hemoglobin 15.8 g/dL (14.0-18.0); Mean Corpuscular HGB CONC 33.2 g/dL (32.0-36.0); Mean Corpuscular Hemoglobin 32.8 pg (27.0-31.0); Mean Corpuscular Volume 98.8 fl (78.0-98.0); Mean Platelet Volume 9.9 fL (7.4-10.4); Platelet Count 142 10x3/uL (130-400); RBC Distribution Width 14.9 % (11.5-14.5); Red Blood Cell (RBC) Count 4.82 mill/uL (4.70-6.10); White Blood Cell (WBC) Count 5.1 10x3/uL (4.8-10.8)
[2023-01-11 05:00] LABS: ALT (SGPT) 119 U/L (8-55); AST (SGOT) 70 U/L (5-34); Albumin 3.5 g/dL (3.4-4.8); Alkaline Phosphatase 100 U/L (40-110); Anion Gap 13 mmol/L (10-20); BUN (Urea Nitrogen) 30 mg/dL (8.4-25.7); Bilirubin, Total 2.1 mg/dL (0.2-1.2); Calc. Creatinine Clearance 53 mL/min (70-130); Calcium 9.2 mg/dL (7.8-10.44); Carbon Dioxide 26 mmol/L (23-31); Chloride 102 mmol/L (98-107); Estimated GFR 58; Globulin 2.9 g/dL (2.4-3.5); Glucose 84 mg/dL (83-110); Potassium 3.5 mmol/L (3.5-5.1); Protein, Total 6.4 g/dL (5.8-8.1); Sodium 137 mmol/L (136-145)
[2023-01-11] MEDS: Furosemide 100 MG/10 ML VIAL SLOW IVP SCH (06:20)
[2023-01-11] MEDS: Levothyroxine Sodium 75 MCG TAB PO SCH (06:25)
[2023-01-11] MEDS ORDERED: Furosemide 40 MG/4 ML VIAL SLOW IVP SCH (08:00)
[2023-01-11] MEDS: Empagliflozin 10 MG TAB PO SCH (08:46)
[2023-01-11] MEDS: Potassium Chloride 20 MEQ TAB PO SCH ×2 (08:46→23:56)
[2023-01-11] MEDS: Apixaban 5 MG TAB PO SCH ×2 (08:46→23:57)
[2023-01-11] MEDS: Spironolactone 25 MG TAB PO SCH (08:46)
[2023-01-11] MEDS: Tamsulosin HCl 0.4 MG CAP PO SCH (08:47)
[2023-01-11] MEDS ORDERED: DOBUTamine 500 mg/250 ml 250 ML IVPB SCH (09:02)
[2023-01-11] MEDS ORDERED: Spironolactone 25 MG TAB PO SCH (09:15)
[2023-01-11] MEDS: Midodrine HCl 5 MG TAB PO SCH ×3 (10:10→23:57)
[2023-01-11] MEDS: Furosemide 40 MG/4 ML VIAL SLOW IVP SCH (14:33)
[2023-01-11] MEDS: Cyanocobalamin (Vitamin B-12) 1,000 MCG TAB PO SCH (23:56)
[2023-01-11] MEDS: Amiodarone 200 MG TAB PO SCH (23:57)
[2023-01-12] MEDS: Furosemide 40 MG/4 ML VIAL SLOW IVP SCH (06:20)
[2023-01-12] MEDS: Levothyroxine Sodium 75 MCG TAB PO SCH (06:20)
[2023-01-12] MEDS ORDERED: Spironolactone 25 MG TAB PO SCH (08:00)
[2023-01-12 08:26] VITALS: TEMP 97.5
[2023-01-12] MEDS: Amiodarone 200 MG TAB PO SCH (09:08)
[2023-01-12] MEDS: Empagliflozin 10 MG TAB PO SCH (09:08)
[2023-01-12] MEDS: Tamsulosin HCl 0.4 MG CAP PO SCH (09:09)
[2023-01-12] MEDS: Midodrine HCl 5 MG TAB PO SCH (09:09)
[2023-01-12] MEDS: Apixaban 5 MG TAB PO SCH (09:09)
[2023-01-12] MEDS: Potassium Chloride 20 MEQ TAB PO SCH (09:12)
[2023-01-12 09:22] LABS: Anion Gap 13 mmol/L (10-20); BUN (Urea Nitrogen) 26 mg/dL (8.4-25.7); Calc. Creatinine Clearance 58 mL/min (70-130); Calcium 8.7 mg/dL (7.8-10.44); Carbon Dioxide 27 mmol/L (23-31); Chloride 101 mmol/L (98-107); Estimated GFR 68; Glucose 90 mg/dL (83-110); Potassium 3.3 mmol/L (3.5-5.1); Sodium 138 mmol/L (136-145)
[2023-01-12 11:26] VITALS: BP 108/76
[2023-01-12] MEDS ORDERED: Furosemide 40 MG TAB PO SCH (14:00)
[2023-01-13] MEDS ORDERED: Potassium Chloride 20 MEQ TAB PO SCH (08:00)
== END 2023-01-12 12:10 | disposition home or self-care (01) | DRG 280 ==
LOC: ERS 12:20 → ERHOLD 14:34 → 2NO 20:11
PROVIDERS: ADMIT Family Medicine; ATTEND Hospitalist
DX: I13.0 Hypertensive heart and chronic kidney disease with heart failure and stage 1 through stage 4 chronic kidney disease, or unspecified chronic kidney disease (principal); I21.A1 Myocardial infarction type 2; I50.43 Acute on chronic combined systolic (congestive) and diastolic (congestive) heart failure; I47.29 Other ventricular tachycardia; I48.19 Other persistent atrial fibrillation; Z20.822 Contact with and (suspected) exposure to COVID-19; E78.5 Hyperlipidemia, unspecified; N32.81 Overactive bladder; I25.5 Ischemic cardiomyopathy; N18.31 Chronic kidney disease, stage 3a; Z95.810 Presence of automatic (implantable) cardiac defibrillator; Z87.891 Personal history of nicotine dependence; Z79.01 Long term (current) use of anticoagulants; Z79.890 Hormone replacement therapy; Z79.899 Other long term (current) drug therapy
CPT/HCPCS: 36415; 71045; 80048; 80053; 82553; 83880; 84484; 85025; 93005; 93798; 94760; 96374; J1250; J1940; U0003; U0005

== ENCOUNTER 2023-01-17 11:49 | Inpatient (IN) | payer MEDICARE ==
[2023-01-17 13:25] VITALS: BMI 23.6
[2023-01-17] MEDS ORDERED: Acetaminophen 325 MG TAB PO PRN (13:30)
[2023-01-17] MEDS ORDERED: Ondansetron PF 4 MG/2 ML Vial IVP PRN (13:30)
[2023-01-17] MEDS ORDERED: Ondansetron ODT 4 MG TAB SL PRN (13:30)
[2023-01-17] MEDS ORDERED: Senokot S 8.6-50 MG TAB PO PRN (14:41)
[2023-01-17] MEDS ORDERED: Bisacodyl 10 MG SUPP PR PRN (14:41)
[2023-01-17] MEDS ORDERED: Bisacodyl 5 MG TAB PO PRN (14:41)
[2023-01-17] MEDS ORDERED: Nitroglycerin 0.4 MG TAB (25 Tab Bottle) SL PRN (14:46)
[2023-01-17 18:12] LABS: Troponin I 0.208 ng/mL (< 0.028)
[2023-01-17] MEDS ORDERED: Apixaban 5 MG TAB PO SCH (21:00)
[2023-01-17] MEDS ORDERED: Amiodarone 200 MG TAB PO SCH (21:00)
[2023-01-17] MEDS: Famotidine 20 MG TAB PO SCH (21:28)
[2023-01-17] MEDS: Potassium Chloride 20 MEQ TAB PO SCH (21:29)
[2023-01-18] MEDS: Melatonin 3 MG TAB PO PRN ×2 (00:52→20:25)
[2023-01-18 04:08] LABS: #Eosinphils 0.1 thou/uL (0.0-0.7); #Lymphocytes 1.2 thou/uL (1.20-3.40); #Monocytes 0.5 thou/uL (0.11-0.59); #Neutrophils 4.7 thou/uL (1.40-6.50); %Lymphocytes 18.4 % (21.0-51.0); %Monocytes 8.2 % (0.0-10.0); %Neutrophils 72.4 % (42.0-75.0); Hemoglobin 15.5 g/dL (14.0-18.0); Mean Corpuscular HGB CONC 34.5 g/dL (32.0-36.0); Mean Corpuscular Hemoglobin 33.7 pg (27.0-31.0); Mean Corpuscular Volume 97.8 fl (78.0-98.0); Mean Platelet Volume 9.7 fL (7.4-10.4); Platelet Count 149 10x3/uL (130-400); RBC Distribution Width 14.7 % (11.5-14.5); White Blood Cell (WBC) Count 6.5 10x3/uL (4.8-10.8)
[2023-01-18 04:24] LABS: Anion Gap 16 mmol/L (10-20); BUN (Urea Nitrogen) 35 mg/dL (8.4-25.7); Calc. Creatinine Clearance 45 mL/min (70-130); Calcium 8.9 mg/dL (7.8-10.44); Carbon Dioxide 21 mmol/L (23-31); Chloride 104 mmol/L (98-107); Estimated GFR 51; Glucose 101 mg/dL (83-110); Potassium 3.9 mmol/L (3.5-5.1); Sodium 137 mmol/L (136-145)
[2023-01-18] MEDS: Levothyroxine Sodium 75 MCG TAB PO SCH (05:20)
[2023-01-18] MEDS: Famotidine 20 MG TAB PO SCH ×2 (08:49→20:22)
[2023-01-18] MEDS: Amiodarone 200 MG TAB PO SCH (08:50)
[2023-01-18] MEDS: Empagliflozin 10 MG TAB PO SCH (08:50)
[2023-01-18] MEDS: Tamsulosin HCl 0.4 MG CAP PO SCH (08:50)
[2023-01-18] MEDS: Potassium Chloride 20 MEQ TAB PO SCH ×2 (08:50→20:23)
[2023-01-18] MEDS: Spironolactone 25 MG TAB PO SCH (08:50)
[2023-01-18] MEDS ORDERED: Furosemide 40 MG/4 ML VIAL SLOW IVP SCH ×2 (09:00→15:00)
[2023-01-18] MEDS ORDERED: Communication Order-Pharmacy FS SCH (13:30)
[2023-01-19 04:29] LABS: #Eosinphils 0.1 thou/uL (0.0-0.7); #Lymphocytes 1.1 thou/uL (1.20-3.40); #Monocytes 0.5 thou/uL (0.11-0.59); #Neutrophils 3.7 thou/uL (1.40-6.50); %Basophils 0.5 % (0.0-1.0); %Eosinophils 1.6 % (0.0-10.0); %Lymphocytes 20.4 % (21.0-51.0); %Monocytes 9.1 % (0.0-10.0); %Neutrophils 68.4 % (42.0-75.0); Hemoglobin 15.3 g/dL (14.0-18.0); Mean Corpuscular HGB CONC 32.9 g/dL (32.0-36.0); Mean Corpuscular Hemoglobin 32.5 pg (27.0-31.0); Mean Corpuscular Volume 98.9 fl (78.0-98.0); Mean Platelet Volume 9.9 fL (7.4-10.4); Platelet Count 148 10x3/uL (130-400); RBC Distribution Width 14.7 % (11.5-14.5); Red Blood Cell (RBC) Count 4.69 mill/uL (4.70-6.10); White Blood Cell (WBC) Count 5.3 10x3/uL (4.8-10.8)
[2023-01-19 04:51] LABS: Anion Gap 16 mmol/L (10-20); BUN (Urea Nitrogen) 33 mg/dL (8.4-25.7); Calc. Creatinine Clearance 45 mL/min (70-130); Calcium 9.1 mg/dL (7.8-10.44); Carbon Dioxide 26 mmol/L (23-31); Chloride 102 mmol/L (98-107); Estimated GFR 51; Glucose 92 mg/dL (83-110); Potassium 3.6 mmol/L (3.5-5.1); Sodium 140 mmol/L (136-145)
[2023-01-19] MEDS ORDERED: Furosemide 40 MG/4 ML VIAL SLOW IVP SCH ×2 (05:30→14:00)
[2023-01-19] MEDS: Famotidine 20 MG TAB PO SCH (05:42)
[2023-01-19] MEDS: Levothyroxine Sodium 75 MCG TAB PO SCH (05:42)
[2023-01-19] MEDS: Tamsulosin HCl 0.4 MG CAP PO SCH (05:43)
[2023-01-19] MEDS: Potassium Chloride 20 MEQ TAB PO SCH (05:43)
[2023-01-19] MEDS: Empagliflozin 10 MG TAB PO SCH (05:43)
[2023-01-19] MEDS: Amiodarone 200 MG TAB PO SCH (05:43)
[2023-01-19] MEDS: Spironolactone 25 MG TAB PO SCH (05:43)
[2023-01-19] MEDS ORDERED: Sodium Chloride 0.9% 1,000 ML IV SCH ×2 (06:00→12:00)
[2023-01-19] MEDS ORDERED: Heparin 10,000 UNITS/ 10 ML VIAL ONE (08:03)
[2023-01-19] MEDS ORDERED: Nitroglycerin 100MG/250ML BOT 0 ML ONE (08:03)
[2023-01-19] MEDS ORDERED: Lidocaine 1% (PF) 30 ML VIAL ONE (08:03)
[2023-01-19] MEDS ORDERED: FENTANYL 50 MCG/ML 1 ML VIAL ONE (08:31)
[2023-01-19] MEDS ORDERED: Midazolam HCl 2 mg/2 ml Vial ONE (08:32)
[2023-01-19] MEDS ORDERED: Iopamidol 370 76% 100 ML VIAL ONE (08:54)
[2023-01-19] MEDS ORDERED: Acetaminophen/Codeine 30-300mg Tablet PO PRN (09:08)
[2023-01-19] MEDS ORDERED: Sodium Chloride 0.9% 200 ML IV PRN (09:08)
[2023-01-19 11:31] VITALS: TEMP 97.4
[2023-01-19 14:03] VITALS: BP 101/65
[2023-01-20] MEDS ORDERED: Apixaban 5 MG TAB PO SCH (09:00)
[2023-01-20] MEDS ORDERED: Famotidine 20 MG TAB PO SCH (09:00)
== END 2023-01-19 15:35 | disposition home or self-care (01) | DRG 287 ==
LOC: 2NO 13:00
PROVIDERS: ADMIT Hospitalist; ATTEND Hospitalist
PROC: 4A023N7 Measurement of Cardiac Sampling and Pressure, Left Heart, Percutaneous Approach (ICD-10-PCS; principal; 2023-01-19)
PROC: B2111ZZ Fluoroscopy of Multiple Coronary Arteries using Low Osmolar Contrast (ICD-10-PCS; 2023-01-19)
PROC: B2151ZZ Fluoroscopy of Left Heart using Low Osmolar Contrast (ICD-10-PCS; 2023-01-19)
DX: I50.43 Acute on chronic combined systolic (congestive) and diastolic (congestive) heart failure (principal); I48.19 Other persistent atrial fibrillation; N17.9 Acute kidney failure, unspecified; I42.9 Cardiomyopathy, unspecified; I27.20 Pulmonary hypertension, unspecified; Z95.810 Presence of automatic (implantable) cardiac defibrillator; Z79.01 Long term (current) use of anticoagulants; Z79.899 Other long term (current) drug therapy; Z88.8 Allergy status to other drugs, medicaments and biological substances
CPT/HCPCS: 36415; 80048; 83880; 85025; 93458; 94760; C1769; C1887; C1894; J1644; J1940; J2001; J2250; J3010; J7050

== ENCOUNTER 2023-02-15 06:35 | Day surgery (SDC) | payer MEDICARE ==
[2023-02-12 09:03] VITALS: BMI 25.1
[2023-02-15 07:01] LABS: #Lymphocytes 1.2 thou/uL (1.20-3.40); #Monocytes 0.5 thou/uL (0.11-0.59); #Neutrophils 2.9 thou/uL (1.40-6.50); %Basophils 0.4 % (0.0-1.0); %Eosinophils 0.5 % (0.0-10.0); %Lymphocytes 25.9 % (21.0-51.0); %Monocytes 9.6 % (0.0-10.0); %Neutrophils 63.5 % (42.0-75.0); Hemoglobin 15.7 g/dL (14.0-18.0); Mean Corpuscular HGB CONC 32.7 g/dL (32.0-36.0); Mean Corpuscular Hemoglobin 32.8 pg (27.0-31.0); Mean Platelet Volume 9.7 fL (7.4-10.4); Platelet Count 125 10x3/uL (130-400); RBC Distribution Width 15.8 % (11.5-14.5); Red Blood Cell (RBC) Count 4.78 mill/uL (4.70-6.10); White Blood Cell (WBC) Count 4.6 10x3/uL (4.8-10.8)
[2023-02-15 07:21] LABS: Anion Gap 15 mmol/L (10-20); BUN (Urea Nitrogen) 34 mg/dL (8.4-25.7); Calc. Creatinine Clearance 34 mL/min (70-130); Calcium 9.5 mg/dL (7.8-10.44); Carbon Dioxide 25 mmol/L (23-31); Chloride 100 mmol/L (98-107); Estimated GFR 33; Glucose 95 mg/dL (83-110); Potassium 4.6 mmol/L (3.5-5.1); Sodium 135 mmol/L (136-145)
[2023-02-15] MEDS ORDERED: PROPOFOL 20 ML ONE (07:32)
[2023-02-15] MEDS ORDERED: ePHEDrine Sulfate 50 MG/10 ML VIAL ONE (08:50)
== END 2023-02-15 10:21 | disposition home or self-care (01) ==
LOC: SDC 06:35
PROVIDERS: ATTEND Internal Medicine Cardiovascular Disease
PROC: 5A2204Z Restoration of Cardiac Rhythm, Single (ICD-10-PCS; principal; 2023-02-15)
DX: I48.19 Other persistent atrial fibrillation (principal); I11.0 Hypertensive heart disease with heart failure; I50.22 Chronic systolic (congestive) heart failure; Z79.01 Long term (current) use of anticoagulants; Z79.84 Long term (current) use of oral hypoglycemic drugs; Z79.890 Hormone replacement therapy; Z79.899 Other long term (current) drug therapy; Z87.891 Personal history of nicotine dependence; Z88.6 Allergy status to analgesic agent; Z95.810 Presence of automatic (implantable) cardiac defibrillator
CPT/HCPCS: 36415; 80048; 85025; 92960; J2704

== ENCOUNTER 2023-02-17 09:27 | Emergency (ER) | payer MEDICARE ==
[2023-02-17 10:22] LABS: Hemoglobin 16.2 g/dL (14.0-18.0); Mean Corpuscular HGB CONC 31.8 g/dL (32.0-36.0); Mean Corpuscular Hemoglobin 31.6 pg (27.0-31.0); Mean Corpuscular Volume 99.3 fl (78.0-98.0); Mean Platelet Volume 9.4 fL (7.4-10.4); Platelet Count 136 10x3/uL (130-400); RBC Distribution Width 15.6 % (11.5-14.5); Red Blood Cell (RBC) Count 5.12 mill/uL (4.70-6.10); White Blood Cell (WBC) Count 11.4 10x3/uL (4.8-10.8)
[2023-02-17 10:46] LABS: ALT (SGPT) 126 U/L (8-55); AST (SGOT) 103 U/L (5-34); Albumin 4.2 g/dL (3.4-4.8); Alkaline Phosphatase 93 U/L (40-110); Anion Gap 17 mmol/L (10-20); BUN (Urea Nitrogen) 38 mg/dL (8.4-25.7); Bilirubin, Total 2.6 mg/dL (0.2-1.2); Calc. Creatinine Clearance 0 mL/min (70-130); Calcium 9.9 mg/dL (7.8-10.44); Carbon Dioxide 25 mmol/L (23-31); Chloride 96 mmol/L (98-107); Estimated GFR 31; Globulin 3.1 g/dL (2.4-3.5); Glucose 87 mg/dL (83-110); Protein, Total 7.3 g/dL (5.8-8.1); Sodium 134 mmol/L (136-145)
[2023-02-17 11:18] LABS: Band 18 % (5-11); Lymphocytes 4 % (21-51); MDiff Complete? YES; Monocytes 6 % (0-10); Neutrophil 71 % (42-75); RBC Morphology Normal; Reactive Lymphocytes 1 % (0-10)
[2023-02-17 11:28] LABS: INR-International Normal Ratio 2.6; PTT 38.5 sec (22.9-36.1)
[2023-02-17] MEDS ORDERED: traMADol HCl 50 MG TAB ONE (13:27)
== END 2023-02-17 13:47 | disposition home or self-care (01) ==
LOC: ERS 09:27
DX: L03.116 Cellulitis of left lower limb (principal); D72.825 Bandemia; R79.89 Other specified abnormal findings of blood chemistry; D72.829 Elevated white blood cell count, unspecified; N18.9 Chronic kidney disease, unspecified; I50.9 Heart failure, unspecified; E78.5 Hyperlipidemia, unspecified; Z87.891 Personal history of nicotine dependence; Z79.01 Long term (current) use of anticoagulants
CPT/HCPCS: 36415; 80053; 85025; 85379; 85610; 85730; 87040; 87149; 93923; 93970

== ENCOUNTER 2023-02-27 14:22 | Inpatient (IN) | payer MEDICARE ==
[2023-02-27] MEDS ORDERED: Magnesium 2 GM/50 ML BAG (IN WATER) ONE (14:48)
[2023-02-27] MEDS ORDERED: Cefepime 2 GM VIAL ONE ×2 (14:48→14:49)
[2023-02-27] MEDS ORDERED: Calcium Gluc 4.6 MEQ/10 ML (100 MG/ML) ONE (14:48)
[2023-02-27] MEDS ORDERED: NOREPINEPHRINE 8 MG/250 ML-D5W 250 ML ONE (15:02)
[2023-02-27] MEDS ORDERED: Vancomycin 1.5 GRAM/300 ML BAG 1.5 GM in Premix Bag 1 BAG IVPB SCH (15:15)
[2023-02-27 15:16] LABS: Actual Bicarbonate (HCO3a) 15.4 mEq/L (22-28); Base Excess (BEa) -6.7 mEq/L (-2.0 to +3.0); Calcium, Ionized (arterial) 1.13 mmol/L (1.12-1.30); Carboxyhemoglobin (COHb) 0.5 gm% (0.0-3.0); Hemoglobin (Hb) 18.2 g/dL (14.0-18.0); pH, Arterial 7.42 (7.35-7.45)
[2023-02-27 15:23] LABS: CO2 Tension 24.5 mmHg (35.0-45.0); Puncture Site Left Radial
[2023-02-27 15:31] LABS: #Lymphocytes 1.3 thou/uL (1.20-3.40); #Monocytes 0.6 thou/uL (0.11-0.59); #Neutrophils 8.6 thou/uL (1.40-6.50); %Basophils 0.3 % (0.0-1.0); %Eosinophils 0.2 % (0.0-10.0); %Lymphocytes 12.2 % (21.0-51.0); %Monocytes 5.3 % (0.0-10.0); %Neutrophils 81.9 % (42.0-75.0); Hemoglobin 18.4 g/dL (14.0-18.0); Mean Corpuscular HGB CONC 31.9 g/dL (32.0-36.0); Mean Corpuscular Hemoglobin 32.2 pg (27.0-31.0); Mean Platelet Volume 9.4 fL (7.4-10.4); Platelet Count 202 10x3/uL (130-400); RBC Distribution Width 16.4 % (11.5-14.5); Red Blood Cell (RBC) Count 5.72 mill/uL (4.70-6.10); White Blood Cell (WBC) Count 10.5 10x3/uL (4.8-10.8)
[2023-02-27 15:36] LABS: Actual Bicarbonate (HCO3v) 15 mEq/L (22-28); Base Excess -11.2 mEq/L (-2.0 to +3.0); Calcium, Ionized (venous) 0.86 mmol/L (1.16-1.32); Chloride (VBG) 106 mmol/L (98-106); Hemoglobin (Hb) 13.8 g/dL (12.6-17.4); Potassium (VBG) 4.21 mmol/L (3.70-5.30); Sodium 132.8 mmol/L (133-146); pH (venous) 7.27 (7.32-7.43)
[2023-02-27 15:39] LABS: INR-International Normal Ratio 4.5; Prothrombin Time 44.5 sec (12.0-14.7)
[2023-02-27] MEDS ORDERED: Ondansetron PF 4 MG/2 ML Vial ONE (15:52)
[2023-02-27 16:15] LABS: CKMB 9.1 ng/mL (0-6.6)
[2023-02-27 16:19] LABS: Bilirubin Negative (Negative); Blood, Urine 2+ (Negative); Clarity Turbid (Clear); Glucose, Urine (Dipstick) Normal (Negative); Ketone, Urine Negative (Negative); Leukocyte 25 Leu/uL (Negative); Nitrite Negative (Negative); Protein, Urine (Dipstick) 100 mg/dL (Neg-Trace)
[2023-02-27 16:29] LABS: Bacteria/HPF 2+ HPF (None Seen); Sperm/HPF 2+ HPF (None Seen)
[2023-02-27 16:30] LABS: Calcium Oxalate Crystals 2+ HPF (None Seen)
[2023-02-27 16:51] LABS: ALT (SGPT) 385 U/L (8-55); AST (SGOT) 269 U/L (5-34); Albumin 3.5 g/dL (3.4-4.8); Alkaline Phosphatase 77 U/L (40-110); Anion Gap 24 mmol/L (10-20); BUN (Urea Nitrogen) 48 mg/dL (8.4-25.7); Bilirubin, Total 2.9 mg/dL (0.2-1.2); Calc. Creatinine Clearance 0 mL/min (70-130); Calcium 10.2 mg/dL (7.8-10.44); Carbon Dioxide 15 mmol/L (23-31); Chloride 97 mmol/L (98-107); Estimated GFR 22; Globulin 2.9 g/dL (2.4-3.5); Glucose 93 mg/dL (83-110); Magnesium 2.9 mg/dL (1.6-2.6); Protein, Total 6.4 g/dL (5.8-8.1); Sodium 129 mmol/L (136-145)
[2023-02-27 16:53] LABS: Potassium 6.6 mmol/L (3.5-5.1)
[2023-02-27] MEDS ORDERED: Sodium Bicarb 50 MEQ/50 ML VIAL ONE (17:46)
[2023-02-27] MEDS ORDERED: Furosemide 40 MG/4 ML VIAL ONE (17:46)
[2023-02-27 18:14] LABS: Lactic Acid 6.1 mmol/L (0.5-2.2)
[2023-02-27] MEDS ORDERED: Senokot S 8.6-50 MG TAB PO PRN (19:16)
[2023-02-27] MEDS ORDERED: Ondansetron PF 4 MG/2 ML Vial IVP PRN (19:16)
[2023-02-27] MEDS ORDERED: Sodium Chloride 0.9% 1,000 ML IV SCH (19:30)
[2023-02-27] MEDS ORDERED: NOREPINEPHRINE 8 MG/250 ML-D5W 250 ML IVPB SCH (19:30)
[2023-02-27] MEDS ORDERED: Sodium Chloride 0.9% 500 ML IV SCH ×2 (19:30→21:00)
[2023-02-27] MEDS ORDERED: Ipratropium/Albuterol 3 ML NEB NEB PRN (19:37)
[2023-02-27 19:39] LABS: Troponin I 0.446 ng/mL (< 0.028)
[2023-02-27] MEDS ORDERED: Dextrose 50% Abboject 50 ML SYRINGE SLOW IVP PRN (19:39)
[2023-02-27] MEDS ORDERED: HumaLOG 300 UNITS/3 ML VIAL SC PRN ×2 (19:39)
[2023-02-27] MEDS ORDERED: Dextrose 5% in Water 1,000 ML IV PRN (19:39)
[2023-02-27] MEDS ORDERED: Piperacillin/Tazobactam 3.375 GM in Sodium Chloride 0.9% 100 ML IVPB SCH ×2 (19:45→22:30)
[2023-02-27 20:20] LABS: Anion Gap 23 mmol/L (10-20); BUN (Urea Nitrogen) 50 mg/dL (8.4-25.7); Calc. Creatinine Clearance 0 mL/min (70-130); Calcium 10.1 mg/dL (7.8-10.44); Carbon Dioxide 19 mmol/L (23-31); Chloride 94 mmol/L (98-107); Estimated GFR 23; Glucose 94 mg/dL (83-110); Sodium 130 mmol/L (136-145)
[2023-02-27 20:26] LABS: Potassium 6.2 mmol/L (3.5-5.1)
[2023-02-27] MEDS ORDERED: Dextrose 50% Abboject 50 ML SYRINGE SLOW IVP SCH (21:00)
[2023-02-27] MEDS ORDERED: Apixaban 2.5 MG TAB PO SCH (21:00)
[2023-02-27] MEDS ORDERED: Insulin Regular 300 UNITS/3 ML VIAL IVP SCH (21:00)
[2023-02-27] MEDS ORDERED: Sodium Bicarb 50 MEQ/50 ML VIAL IVP SCH (21:00)
[2023-02-27] MEDS: Famotidine/PF 20 mg/2ml Vial SLOW IVP SCH (21:26)
[2023-02-27] MEDS: CALCIUM GLUC 1 GM/NS 50 ML 1 GM in Premix Bag 1 BAG IVPB SCH ×2 (21:26→21:31)
[2023-02-27] MEDS: Tamsulosin HCl 0.4 MG CAP PO SCH (21:27)
[2023-02-27] MEDS: traZODone HCl 50 MG TAB PO SCH (21:27)
[2023-02-27] MEDS: Midodrine HCl 5 MG TAB PO SCH (21:27)
[2023-02-27 21:59] VITALS: BMI 25.2
[2023-02-27] MEDS ORDERED: Vancomycin HCl 500 MG in Sodium Chloride 0.9% 100 ML IVPB SCH (22:30)
[2023-02-27 22:35] LABS: Critical Call Chem Troponin I RESULT DECREASING
[2023-02-28 00:05] LABS: Lactic Acid 4.8 mmol/L (0.5-2.2)
[2023-02-28 00:06] LABS: Anion Gap 19 mmol/L (10-20); BUN (Urea Nitrogen) 53 mg/dL (8.4-25.7); Calc. Creatinine Clearance 25 mL/min (70-130); Calcium 9.7 mg/dL (7.8-10.44); Carbon Dioxide 24 mmol/L (23-31); Chloride 95 mmol/L (98-107); Estimated GFR 22; Potassium 5.6 mmol/L (3.5-5.1); Sodium 132 mmol/L (136-145)
[2023-02-28 00:10] LABS: Glucose 39 mg/dL (83-110)
[2023-02-28] MEDS: Acetaminophen 325 MG TAB PO PRN ×3 (03:46→15:30)
[2023-02-28 04:02] LABS: Hemoglobin 15.1 g/dL (14.0-18.0); Mean Corpuscular HGB CONC 32.9 g/dL (32.0-36.0); Mean Corpuscular Hemoglobin 32.6 pg (27.0-31.0); Mean Platelet Volume 9.8 fL (7.4-10.4); Platelet Count 202 10x3/uL (130-400); RBC Distribution Width 16.1 % (11.5-14.5); Red Blood Cell (RBC) Count 4.64 mill/uL (4.70-6.10)
[2023-02-28 04:11] LABS: INR-International Normal Ratio 4.9; Prothrombin Time 47.9 sec (12.0-14.7)
[2023-02-28 04:21] LABS: ALT (SGPT) 479 U/L (8-55); AST (SGOT) 383 U/L (5-34); Albumin 3.2 g/dL (3.4-4.8); Alkaline Phosphatase 67 U/L (40-110); Anion Gap 18 mmol/L (10-20); BUN (Urea Nitrogen) 54 mg/dL (8.4-25.7); Bilirubin, Total 2.4 mg/dL (0.2-1.2); Calc. Creatinine Clearance 25 mL/min (70-130); Calcium 9.5 mg/dL (7.8-10.44); Carbon Dioxide 25 mmol/L (23-31); Chloride 95 mmol/L (98-107); Estimated GFR 23; Globulin 2.5 g/dL (2.4-3.5); Glucose 76 mg/dL (83-110); Magnesium 2.5 mg/dL (1.6-2.6); Potassium 5.5 mmol/L (3.5-5.1); Protein, Total 5.7 g/dL (5.8-8.1); Sodium 132 mmol/L (136-145)
[2023-02-28 04:25] LABS: Anisocytosis SLIGHT = 6-15 cells (100X) (0-5/hpf); Band 1 % (5-11); Large Platelets SLIGHT; Lymphocytes 3 % (21-51); MDiff Complete? YES; Macrocytosis SLIGHT = 6-15 cells (100X) (0-5/hpf); Monocytes 6 % (0-10); Neutrophil 90 % (42-75); Platelet Morphology Comment Appears Adequate; Polychromasia SLIGHT = 2-3 cells (100X) (0-2/hpf)
[2023-02-28] MEDS: Levothyroxine Sodium 75 MCG TAB PO SCH (06:13)
[2023-02-28] MEDS: Piperacillin/Tazobactam 3.375 GM in Sodium Chloride 0.9% 100 ML IVPB SCH ×3 (06:14→21:05)
[2023-02-28] MEDS ORDERED: Furosemide 40 MG TAB PO SCH (09:00)
[2023-02-28] MEDS ORDERED: LOKELMA 10 GM PACKET PO SCH (09:11)
[2023-02-28] MEDS: Midodrine HCl 5 MG TAB PO SCH ×3 (10:10→21:05)
[2023-02-28] MEDS ORDERED: Vancomycin Dose by Levels Sliding Scale (Wt 71-99) FS SCH (11:00)
[2023-02-28 14:22] LABS: Creatinine, Urine 22.97 mg/dL (63-166); Protein, Urine Random Quant Less than 10 mg/dL (1-14); Sodium, Urine 58 mmol/L (Not Available); Urea Nitrogen, Random Urine 284 mg/dl
[2023-02-28 16:30] LABS: Anion Gap 17 mmol/L (10-20); BUN (Urea Nitrogen) 49 mg/dL (8.4-25.7); Calc. Creatinine Clearance 26 mL/min (70-130); Calcium 8.7 mg/dL (7.8-10.44); Carbon Dioxide 25 mmol/L (23-31); Chloride 94 mmol/L (98-107); Estimated GFR 24; Glucose 93 mg/dL (83-110); Potassium 4.5 mmol/L (3.5-5.1); Sodium 131 mmol/L (136-145)
[2023-02-28] MEDS ORDERED: Vancomycin 1 GM in Premix Bag 1 BAG IVPB SCH (17:00)
[2023-02-28] MEDS: traMADol HCl 50 MG TAB PO PRN (17:33)
[2023-02-28] MEDS: traZODone HCl 50 MG TAB PO SCH (21:04)
[2023-02-28] MEDS: Famotidine/PF 20 mg/2ml Vial SLOW IVP SCH (21:04)
[2023-02-28] MEDS: Tamsulosin HCl 0.4 MG CAP PO SCH (21:05)
[2023-03-01 00:03] LABS: Vancomycin, Random 11.1 ug/mL (See Comment)
[2023-03-01] MEDS ORDERED: Vancomycin HCl 750 MG in Sodium Chloride 0.9% 250 ML 250 ML IVPB SCH (00:15)
[2023-03-01 04:43] LABS: INR-International Normal Ratio 3.4; Prothrombin Time 35.7 sec (12.0-14.7)
[2023-03-01 04:53] LABS: Lactic Acid 1.8 mmol/L (0.5-2.2)
[2023-03-01 04:58] LABS: ALT (SGPT) 410 U/L (8-55); AST (SGOT) 214 U/L (5-34); Albumin 3.3 g/dL (3.4-4.8); Alkaline Phosphatase 75 U/L (40-110); Anion Gap 14 mmol/L (10-20); BUN (Urea Nitrogen) 45 mg/dL (8.4-25.7); Bilirubin, Total 2.6 mg/dL (0.2-1.2); CK (CPK) 56 U/L (30-200); Calc. Creatinine Clearance 27 mL/min (70-130); Calcium 8.8 mg/dL (7.8-10.44); Carbon Dioxide 28 mmol/L (23-31); Chloride 94 mmol/L (98-107); Estimated GFR 25; Globulin 2.5 g/dL (2.4-3.5); Glucose 96 mg/dL (83-110); Magnesium 2.2 mg/dL (1.6-2.6); Potassium 4.2 mmol/L (3.5-5.1); Protein, Total 5.8 g/dL (5.8-8.1); Sodium 132 mmol/L (136-145)
[2023-03-01] MEDS: Levothyroxine Sodium 75 MCG TAB PO SCH (05:34)
[2023-03-01] MEDS: Piperacillin/Tazobactam 3.375 GM in Sodium Chloride 0.9% 100 ML IVPB SCH ×3 (05:34→22:05)
[2023-03-01] MEDS ORDERED: Spironolactone 25 MG TAB PO SCH (08:00)
[2023-03-01] MEDS ORDERED: Sodium Chloride 0.9% 500 ML IV SCH (08:30)
[2023-03-01] MEDS ORDERED: Empagliflozin 10 MG TAB PO SCH (09:00)
[2023-03-01] MEDS: Midodrine HCl 5 MG TAB PO SCH ×3 (09:15→20:44)
[2023-03-01] MEDS: Acetaminophen 325 MG TAB PO PRN ×2 (13:28→23:11)
[2023-03-01] MEDS: traMADol HCl 50 MG TAB PO PRN (16:28)
[2023-03-01 20:23] VITALS: TEMP 97.6
[2023-03-01] MEDS: traZODone HCl 50 MG TAB PO SCH (20:44)
[2023-03-01] MEDS: Tamsulosin HCl 0.4 MG CAP PO SCH (20:44)
[2023-03-01] MEDS: Famotidine/PF 20 mg/2ml Vial SLOW IVP SCH (20:44)
[2023-03-02 01:23] LABS: Vancomycin, Trough 11.3 ug/mL
[2023-03-02] MEDS ORDERED: Lorazepam 2 MG/ML VIAL SLOW IVP PRN (01:34)
[2023-03-02] MEDS: Morphine 4 MG/ML VIAL SLOW IVP PRN ×5 (01:44→11:00)
[2023-03-02] MEDS ORDERED: Vancomycin HCl 750 MG in Sodium Chloride 0.9% 250 ML 250 ML IVPB SCH (01:45)
[2023-03-04 09:33] LABS: Potassium - ABG Lab 6.35 mmol/L (3.70-5.30)
== END 2023-03-02 19:45 | disposition expired | DRG 871 ==
LOC: ERS 14:22 → SUATTDRO 14:22 → CCU 18:51
PROVIDERS: ADMIT Internal Medicine; ATTEND Hospitalist
PROC: 3E03329 Introduction of Other Anti-infective into Peripheral Vein, Percutaneous Approach (ICD-10-PCS; principal; 2023-02-27)
PROC: 3E033XZ Introduction of Vasopressor into Peripheral Vein, Percutaneous Approach (ICD-10-PCS; 2023-02-27)
PROC: 4A133R1 Monitoring of Arterial Saturation, Peripheral, Percutaneous Approach (ICD-10-PCS; 2023-02-27)
DX: A41.9 Sepsis, unspecified organism (principal); I21.A1 Myocardial infarction type 2; J18.9 Pneumonia, unspecified organism; J96.01 Acute respiratory failure with hypoxia; R65.21 Severe sepsis with septic shock; I50.43 Acute on chronic combined systolic (congestive) and diastolic (congestive) heart failure; I13.0 Hypertensive heart and chronic kidney disease with heart failure and stage 1 through stage 4 chronic kidney disease, or unspecified chronic kidney disease; N17.9 Acute kidney failure, unspecified; E87.20 Acidosis, unspecified; L03.115 Cellulitis of right lower limb; L03.116 Cellulitis of left lower limb; E87.1 Hypo-osmolality and hyponatremia; I42.8 Other cardiomyopathies; J90 Pleural effusion, not elsewhere classified; Z51.5 Encounter for palliative care; Z66 Do not resuscitate; E78.5 Hyperlipidemia, unspecified; R57.0 Cardiogenic shock; N18.9 Chronic kidney disease, unspecified; Y95 Nosocomial condition; E87.5 Hyperkalemia; R74.01 Elevation of levels of liver transaminase levels; Z95.810 Presence of automatic (implantable) cardiac defibrillator; Z88.5 Allergy status to narcotic agent; Z79.899 Other long term (current) drug therapy; Z79.01 Long term (current) use of anticoagulants; Z79.890 Hormone replacement therapy; Z87.891 Personal history of nicotine dependence
CPT/HCPCS: 36415; 36416; 36556; 51702; 70450; 71045; 71250; 74177; 80053; 80202; 81003; 81015; 82550; 82553; 82570; 82805; 83605; 83735; 83880; 84145; 84156; 84300; 84443; 84484; 84540; 85025; 85610; 85730; 86140; 86850; 86900; 86901; 87040; 87081; 93005; 93010; 93306; 93923; 94640; 96365; 96366; 96367; 96368; 96374; 96375; 97139; J0612; J0613; J0692; J1642; J1815; J1940; J2060; J2270; J2405; J2543; J3370; J3475; J3490; J7030; J7050; J7611; J7999; S0028